=== PATIENT | male | born 1970 | race Caucasian/White ===

== ENCOUNTER 2017-05-18 20:56 | Emergency (ER) | payer BC ==
[~2017-05-18] VITALS: Ht 177.8 cm; Wt 96.2 kg
[2017-05-18] MEDS ORDERED: PROZAC10 MG PO (21:39)
[2017-05-18] MEDS ORDERED: METFORMIN HCL500 MG PO (21:39)
[2017-05-18] MEDS ORDERED: GABAPENTIN 100100 MG PO (21:40)
[2017-05-18] MEDS ORDERED: CLONIDINE HCL0.3 M3 PO (21:41)
[2017-05-18] MEDS ORDERED: AUGMENTIN 875875 MG PO (22:13)
[2017-05-18 23:04] VITALS: BP 118/75
== END 2017-05-18 23:05 | disposition home or self-care (01) ==
LOC: ER 20:56
DX: S01.85XA Open bite of other part of head, initial encounter (principal); S01.551A Open bite of lip, initial encounter; W54.0XXA Bitten by dog, initial encounter; Y93.89 Activity, other specified; Y92.89 Other specified places as the place of occurrence of the external cause; Y99.8 Other external cause status

== ENCOUNTER 2017-09-13 15:54 | Emergency (ER) | payer BC ==
[~2017-09-13] VITALS: Ht 170.2 cm; Wt 104.3 kg
[~2017-09-13 15:54] MED LIST: AUGMENTIN 875875 MG PO; CLONIDINE HCL0.3 M3 PO; GABAPENTIN 100100 MG PO; METFORMIN HCL500 MG PO; PROZAC10 MG PO
[2017-09-13 16:12] VITALS: BP 114/91
[2017-09-13] MEDS ORDERED: REQUIP 0.25 M0.25 MG PO (16:15)
[2017-09-13] MEDS ORDERED: TRAZODONE 150150 M1 PO (16:15)
== END 2017-09-13 17:17 | disposition home or self-care (01) ==
LOC: ER 15:54
DX: S61.211A Laceration without foreign body of left index finger without damage to nail, initial encounter (principal); W26.8XXA Contact with other sharp object(s), not elsewhere classified, initial encounter; Y93.89 Activity, other specified; Y92.89 Other specified places as the place of occurrence of the external cause; Y99.8 Other external cause status